=== PATIENT | male | born 1985 | race Hispanic/Latino ===

== ENCOUNTER 2023-06-16 14:11 | Emergency (ER) | payer OTHER ==
[~2023-06-16] VITALS: Ht 175.3 cm; Wt 127.0 kg
[2023-06-16 14:12] VITALS: BP 186/134; PULSE 109; RESP 20
[2023-06-16] MEDS ORDERED: ACETAMINOPHEN 325 MG TAB ONE (16:27)
[2023-06-16] MEDS ORDERED: ACETAMINOPHEN 325 MG TAB PO ONE (16:30)
[2023-06-16] MEDS ORDERED: IBUP-2070 PO (16:33)
== END 2023-06-16 17:52 | disposition home or self-care (01) ==
LOC: EDH 14:11
DX: R51.9 Headache, unspecified (principal); Z98.890 Other specified postprocedural states; V89.2XXA Person injured in unspecified motor-vehicle accident, traffic, initial encounter; Y93.89 Activity, other specified; Y92.89 Other specified places as the place of occurrence of the external cause; Y99.8 Other external cause status
CPT/HCPCS: 70450; 72125; 93005

== ENCOUNTER 2023-08-20 09:20 | Inpatient (IN) | payer OTHER ==
[~2023-08-20] VITALS: Ht 175.3 cm; Wt 135.2 kg
[~2023-08-20 09:20] MED LIST: IBUP-2070 PO
[2023-08-20] MEDS ORDERED: KETOROLAC 30MG VIAL (30MG/ML) IVP ONE (10:30)
[2023-08-20 11:00] LABS: BASOPHILS # (AUTO) 0.06 K/uL (0.00-0.20); BASOPHILS % (AUTO) 0.4 % (0.0-5.0); EOSINOPHILS # (AUTO) 0.25 K/uL (0.00-0.70); EOSINOPHILS % (AUTO) 1.9 % (0.0-8.0); HEMATOCRIT 43.4 % (42-54); IMMATURE GRANULOCYTE ABSOLUTE 0.13 K/uL (0-1); LYMPHOCYTES # (AUTO) 2.6 K/uL (1.0-4.8); LYMPHOCYTES % (AUTO) 19.7 % (21.0-51.0); MEAN CORPUSCULAR HGB CONC 32.7 g/dL (32.0-36.0); MEAN CORPUSCULAR VOLUME 88.8 fL (79-99); MONOCYTES % (AUTO) 7.3 % (3.0-13.0); NEUTROPHILS # (AUTO) 9.3 K/uL (1.8-7.7); NEUTROPHILS % (AUTO) 69.7 % (40.0-77.0); PLATELET COUNT (AUTO) 331 K/uL (130-400); RED BLOOD CELL COUNT(AUTO) 4.89 MIL/uL (4.50-6.20); RED CELL DISTRIBUTION WIDTH 13.3 % (11.0-15.5); WHITE BLOOD COUNT (AUTO) 13.4 K/uL (4.8-10.8)
[2023-08-20 11:03] LABS: POTASSIUM 3.7 mmol/L (3.5-5.1)
[2023-08-20 11:08] LABS: ALBUMIN 3.5 g/dL (3.5-5.0); BILIRUBIN,TOTAL 0.4 mg/dL (0.2-1.0); TOTAL PROTEIN, SERUM 7.7 g/dL (6.0-8.3)
[2023-08-20] MEDS ORDERED: CLINDAMYCIN IVPB 600MG/50ML 50 ML IV SCH (13:30)
[2023-08-20] MEDS ORDERED: CEFTRIAXONE 1G VIAL IVPB ONE (13:30)
[2023-08-20] MEDS: CLINDAMYCIN IVPB 600MG/50ML 50 ML IV SCH ×2 (15:00→22:27)
[2023-08-20] MEDS ORDERED: MAG/ALUM/SIMETH 30 ML UDCUP PO PRN (15:00)
[2023-08-20] MEDS ORDERED: LACTULOSE 20 GM/30 ML UDCUP PO PRN (15:00)
[2023-08-20] MEDS ORDERED: ONDANSETRON 4MG INJ IV PRN (15:00)
[2023-08-20] MEDS ORDERED: GUAIFENESIN-DM 200/20 MG 10 ML PO PRN (15:00)
[2023-08-20] MEDS ORDERED: ACETAMINOPHEN 325 MG TAB PO PRN (15:00)
[2023-08-20] MEDS ORDERED: ACETAMINOPHEN WITH CODEINE 1 TAB TAB PO PRN (15:00)
[2023-08-20] MEDS ORDERED: NITROGLYCERIN 0.4 MG SL TAB SL PRN (15:00)
[2023-08-20 16:29] LABS: AMPHET/METH SCREEN,URINE NEGATIVE (NEGATIVE); BARBITURATE SCREEN, URINE NEGATIVE (NEGATIVE); BENZODIAZEPINES SCREEN,URINE POSITIVE (NEGATIVE); CANNABINOID SCREEN,URINE NEGATIVE (NEGATIVE); COCAINE SCREEN,URINE POSITIVE (NEGATIVE); OPIATE SCREEN,URINE NEGATIVE (NEGATIVE); PHENCYCLIDINE SCREEN,URINE NEGATIVE (NEGATIVE)
[2023-08-20 18:06] VITALS: BP 158/86; PULSE 78; RESP 17
[2023-08-20 18:15] VITALS: O2SAT 98
[2023-08-20 19:35] VITALS: O2SAT 98
[2023-08-20] MEDS: FAMOTIDINE 20MG VIAL IV SCH (19:57)
[2023-08-20 20:00] VITALS: BP 155/95; PULSE 101; RESP 22
[2023-08-21] VITALS (9 sets, daily range): BP systolic 127–164; BP diastolic 73–102; PULSE 81–106; RESP 18–22; O2SAT 96–98
[2023-08-21] MEDS: CLINDAMYCIN IVPB 600MG/50ML 50 ML IV SCH ×2 (06:26→15:10)
[2023-08-21 08:51] LABS: BASOPHILS # (AUTO) 0.05 K/uL (0.00-0.20); BASOPHILS % (AUTO) 0.5 % (0.0-5.0); EOSINOPHILS # (AUTO) 0.21 K/uL (0.00-0.70); EOSINOPHILS % (AUTO) 1.9 % (0.0-8.0); HEMATOCRIT 43.3 % (42-54); IMMATURE GRANULOCYTE ABSOLUTE 0.08 K/uL (0-1); LYMPHOCYTES # (AUTO) 2.1 K/uL (1.0-4.8); LYMPHOCYTES % (AUTO) 19.6 % (21.0-51.0); MEAN CORPUSCULAR HEMOGLOBIN 28.9 pg (27.0-33.0); MEAN CORPUSCULAR HGB CONC 31.6 g/dL (32.0-36.0); MEAN CORPUSCULAR VOLUME 91.4 fL (79-99); MONOCYTES # (AUTO) 0.6 K/uL (0.1-1.0); MONOCYTES % (AUTO) 5.3 % (3.0-13.0); NEUTROPHILS # (AUTO) 7.9 K/uL (1.8-7.7); PLATELET COUNT (AUTO) 326 K/uL (130-400); RED BLOOD CELL COUNT(AUTO) 4.74 MIL/uL (4.50-6.20); RED CELL DISTRIBUTION WIDTH 13.5 % (11.0-15.5); WHITE BLOOD COUNT (AUTO) 10.9 K/uL (4.8-10.8)
[2023-08-21] MEDS: ENOXAPARIN SODIUM 40 MG/0.4 ML SYRINGE SQ SCH (08:53)
[2023-08-21] MEDS: FAMOTIDINE 20MG VIAL IV SCH ×2 (08:53→20:51)
[2023-08-21 09:01] LABS: CREATININE 1.2 mg/dL (0.5-1.5)
[2023-08-21 09:05] LABS: ALBUMIN 3.1 g/dL (3.5-5.0); BILIRUBIN,TOTAL 0.3 mg/dL (0.2-1.0); TOTAL PROTEIN, SERUM 7.3 g/dL (6.0-8.3)
[2023-08-21 10:13] LABS: ERYTHROCYTE SEDIMENTATION RATE 15 MM/HR (0-15)
[2023-08-22] VITALS (10 sets, daily range): BP systolic 137–164; BP diastolic 78–104; PULSE 67–90; RESP 18–30; O2SAT 97–100
[2023-08-22] MEDS: CLINDAMYCIN IVPB 600MG/50ML 50 ML IV SCH ×4 (00:14→22:55)
[2023-08-22] MEDS: LABETALOL 20MG VIAL IV PRN ×2 (00:15→05:20)
[2023-08-22] MEDS: ENOXAPARIN SODIUM 40 MG/0.4 ML SYRINGE SQ SCH (08:54)
[2023-08-22] MEDS: FAMOTIDINE 20MG VIAL IV SCH ×2 (08:55→20:28)
[2023-08-23] VITALS: BP 156/80; PULSE 100; PULSE 85; RESP 18; RESP 22; O2SAT 95
[2023-08-23 04:00] VITALS: BP 163/74; PULSE 95; RESP 22
[2023-08-23 04:00] LABS: BASOPHILS # (AUTO) 0.06 K/uL (0.00-0.20); BASOPHILS % (AUTO) 0.5 % (0.0-5.0); EOSINOPHILS # (AUTO) 0.32 K/uL (0.00-0.70); EOSINOPHILS % (AUTO) 2.9 % (0.0-8.0); HEMATOCRIT 45.1 % (42-54); IMMATURE GRANULOCYTE ABSOLUTE 0.11 K/uL (0-1); LYMPHOCYTES # (AUTO) 2.5 K/uL (1.0-4.8); LYMPHOCYTES % (AUTO) 22.5 % (21.0-51.0); MEAN CORPUSCULAR HEMOGLOBIN 28.7 pg (27.0-33.0); MEAN CORPUSCULAR HGB CONC 31.5 g/dL (32.0-36.0); MEAN CORPUSCULAR VOLUME 91.1 fL (79-99); MONOCYTES # (AUTO) 0.9 K/uL (0.1-1.0); MONOCYTES % (AUTO) 8.1 % (3.0-13.0); NEUTROPHILS # (AUTO) 7.2 K/uL (1.8-7.7); PLATELET COUNT (AUTO) 340 K/uL (130-400); RED BLOOD CELL COUNT(AUTO) 4.95 MIL/uL (4.50-6.20); RED CELL DISTRIBUTION WIDTH 13.6 % (11.0-15.5)
[2023-08-23 04:13] LABS: ALBUMIN 3.3 g/dL (3.5-5.0); BILIRUBIN,TOTAL 0.2 mg/dL (0.2-1.0); CREATININE 1.1 mg/dL (0.5-1.5); POTASSIUM 4.1 mmol/L (3.5-5.1); TOTAL PROTEIN, SERUM 7.6 g/dL (6.0-8.3)
[2023-08-23] MEDS: CLINDAMYCIN IVPB 600MG/50ML 50 ML IV SCH ×2 (06:08→14:30)
[2023-08-23 06:29] VITALS: PULSE 84; RESP 16; O2SAT 94
[2023-08-23 08:00] VITALS: BP 129/90; PULSE 79; RESP 18; O2SAT 96
[2023-08-23] MEDS: ENOXAPARIN SODIUM 40 MG/0.4 ML SYRINGE SQ SCH (08:55)
[2023-08-23] MEDS: FAMOTIDINE 20MG VIAL IV SCH (08:55)
[2023-08-23 11:47] VITALS: BP 145/60; PULSE 76; RESP 18
[2023-08-23] MEDS ORDERED: CLIN-141 PO (12:47)
== END 2023-08-23 15:20 | disposition home or self-care (01) | DRG 603 ==
LOC: EDH 09:20 → EDHIP 09:21 → 4BH 17:50
PROVIDERS: ADMIT Hospitalist; ATTEND Hospitalist
DX: L03.116 Cellulitis of left lower limb (principal); Z68.41 Body mass index [BMI] 40.0-44.9, adult; F14.90 Cocaine use, unspecified, uncomplicated; E66.01 Morbid (severe) obesity due to excess calories; Z82.49 Family history of ischemic heart disease and other diseases of the circulatory system; Z83.3 Family history of diabetes mellitus
CPT/HCPCS: 36415; 70450; 71045; 73562; 73590; 73600; 73630; 73700; 80053; 80305; 83605; 84145; 85025; 85378; 85651; 86140; 87040; 93005; 93306; 93880; 93925; 93971; 94660; 99291; G0378; J1650; J1885; J3490

== ENCOUNTER → 2024-04-28 | Outpatient (CLI) | payer SELFPAY ==
[~2024-04-28] MED LIST changes: +CLIN-141 PO; -IBUP-2070 PO
[2024-04-28 12:27] LABS: ALBUMIN 3.5 g/dL (3.5-5.0); BILIRUBIN,TOTAL 0.4 mg/dL (0.2-1.0); TOTAL PROTEIN, SERUM 8.2 g/dL (6.0-8.3)
== END | disposition home or self-care (01) ==
LOC: LAB 10:00
PROVIDERS: ATTEND Internal Medicine Cardiovascular Disease
DX: R60.9 Edema, unspecified (principal)
CPT/HCPCS: 36415; 80053